=== PATIENT | female | born 1950 | race Caucasian/White ===

== ENCOUNTER 2018-08-08 14:12 | Outpatient (CLI) | payer MEDICARE, BC ==
--- NOTE | 2018-08-08 15:11 | RAD ---
LEFT KNEE FOUR VIEWS: HISTORY: Medial knee pain. COMPARISON: None. FINDINGS: There is mild to moderate medial and lateral compartment joint space narrowing. Small joint effusion . Patellofemoral osteophyte formation is present. No acute fracture or malalignment. IMPRESSION: Moderate medial and lateral compartment degenerative change and mild patellofemoral compartment degen erative disease. POS: CET
== END 2018-08-08 14:13 | disposition home or self-care (01) ==
LOC: MADRAD 14:12 → EDBD 14:12 → MADRAD 14:13
PROVIDERS: ATTEND Family Medicine
DX: M25.562 Pain in left knee (principal); M17.12 Unilateral primary osteoarthritis, left knee